=== PATIENT | female | born 1975 | race Caucasian/White ===

== ENCOUNTER 2019-12-21 16:47 | Emergency (ER) | payer OTHER ==
[~2019-12-21] VITALS: Ht 162.6 cm; Wt 100.0 kg
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
[2019-12-21 17:33] VITALS: BP 154/88
--- NOTE | 2019-12-21 17:48 | NUR ---
PT TO IMAGING
[2019-12-21] MEDS ORDERED: ONDANSETRON ODT 4 MG ONE (18:03)
[2019-12-21] MEDS ORDERED: PLEASE ENTER ALLERGIES MC SCH (18:30)
[2019-12-21] MEDS ORDERED: ONDANSETRON ODT 4 MG PO ONE (18:30)
== END 2019-12-21 19:08 | disposition home or self-care (01) ==
LOC: ED 19:05
DX: S16.1XXA Strain of muscle, fascia and tendon at neck level, initial encounter (principal); S09.90XA Unspecified injury of head, initial encounter; V49.49XA Driver injured in collision with other motor vehicles in traffic accident, initial encounter; Y93.89 Activity, other specified; Y92.89 Other specified places as the place of occurrence of the external cause; Y99.8 Other external cause status
CPT/HCPCS: 70450; 72125; 99285; Q0162